=== PATIENT | male | born 1970 | race Caucasian/White ===

== ENCOUNTER 2019-06-04 14:44 | Emergency (ER) | payer BC, SELFPAY ==
[2019-06-04] VITALS (9 sets, daily range): BP systolic 187–210; BP diastolic 120–152; PULSE 81–96; RESP 16–18; TEMP 36.3; O2SAT 18–99; BMI 32.9
--- NOTE | 2019-06-04 15:06 | EKG12_ITS ---
Test Reason : HYPERTENSION Blood Pressure : / mmHG Vent. Rate : 086 BPM Atrial Rate : 086 BPM P-R Int : 160 ms QRS Dur : 086 ms QT Int : 386 ms P-R-T Axes : 038 053 046 degrees QTc Int : 461 ms Normal sinus rhythm Normal ECG Confirmed by NISHA MENENDEZ, NIKO ([id number]), publication editor SERENITY CHAUDHARY ([id number]) on 06/06/2019 2:07:28 PM Referred By: LILIANA
--- NOTE | 2019-06-04 15:08 | CT_ITS ---
STUDY: CTA HEAD AND NECK WITH CONTRAST REASON FOR EXAM: Male, 48 years old. Hypertension. Right-sided facial numbness. RADIATION DOSAGE (If Supplied By Facility): CTDIvol = ( 33.86 ) mGy, DLP = ( 1515.24 ) mGycm TECHNIQUE: CT brain without contrast was performed. CT angiography was performed with a multi-detector CT scanner. Data acquisition was obtained from the skull base through the vertex following intravenous administration of IV Isovue 370 100. with MIP and 3D reconstructed images. Individualized dose optimization techniques were used for this CT. COMPARISON: No relevant priors. FINDINGS: CT brain without contrast reveals no evidence of infarct, hemorrhage or mass. ASPECTS 10 out of 10. Prominent perivascular spaces incidentally noted right putamen. ICA narrowing is measured per NASCET criteria. CTA NECK: Aortic arch: Left-sided 3 vessel aortic arch with no significant narrowing of the great vessel origins or subclavian arteries. Right carotids: Right CCA: No significant narrowing or dissection. Right ICA: No significant narrowing or dissection. Right ECA: No significant narrowing or dissection. Left carotids Left CCA:No significant narrowing or dissection. Left ICA: No significant narrowing or dissection. Mixed plaque causes mild, less than 10%, luminal narrowing of the proximal left ICA. Left ECA: No significant narrowing or dissection. Vertebrals: Codominant vertebral arteries with no significant narrowing and no dissection. CTA HEAD: Intracranial carotids:Normal course and caliber. MCAs:Normal branching pattern. No significant stenosis. ACAs:Normal branching pattern. No significant stenosis. Basilar:Normal caliber. No aneurysm. 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 Fed by dominant P1 segments bilaterally. Patent bilateral posterior and anterior inferior and superior cerebellar arteries are identified. No evidence of AVM or aneurysm. No intracranial DVT. Nonvascular structures: Mild thickening and sclerosis of the wall of the right sphenoid sinus with a small amount of mucosal thickening. This sclerosis surrounds the right vidian canal and abuts the medial aspect of the right foramen rotundum. 1.1 cm low-density nodule in the isthmus of the thyroid gland. Sialoliths in the left submandibular gland. CT/CTA Head AND Neck W/ Contrast IMPRESSION: No significant arterial narrowing in the head or neck. No acute findings. Evidence of chronic right sphenoid sinusitis. This could potentially cause right facial numbness by irritating the right V2 branch of the 5th cranial nerve. 1.1 cm low-density nodule in the isthmus of the thyroid gland. Consider nonemergent thyroid workup including ultrasound unless previously performed. Left submandibular gland sialoliths. Electronically Signed: Sky Mueller, at 17:42 EST Tel , Service support ,
--- NOTE | 2019-06-04 15:12 | RAD_ITS ---
STUDY: X-RAY CHEST REASON FOR EXAM: Male, 48 years old. Chest pain. Hypertension. TECHNIQUE: Single AP portable view of the chest. COMPARISON: Comparison is made with prior study dated November 12, 2014. FINDINGS: EKG electrodes are seen. The lungs are clear and expanded. There is no demonstrated pleural abnormality. Normal size heart. Normal mediastinum and stephanie. Normal visualized pulmonary arteries. There is atherosclerotic tortuosity of the aortic arch and descending thoracic aorta. There are degenerative changes of the visualized thoracic spine. Normal visualized ribs, clavicles, and shoulders. There is no demonstrated abnormality of the visualized soft tissue structures of the upper abdomen. RAD/Chest 1 View (Portable) IMPRESSION: No acute abnormality is seen. Electronically Signed: Taye Hunter, at 15:25 EST , Service support ,
[2019-06-04 15:24] LABS: Absolute Lymphocyte Count 2.85 X10^3/uL (0.83-4.51); Absolute Neutrophil Count 6.2 X10^3/uL (2.0-7.7); Basophil# 0.12 X10^3/uL; Basophil% 1.2 % (0-1); Eosinophil# 0.15 X10^3/uL; Eosinophils% 1.5 % (0-5); Hematocrit 46.1 % (40-54); Hemoglobin 15.7 g/dL (13.0-16.5); Lymphocyte # 2.85 X10^3/ul (4.0); Lymphocyte % 28.4 % (19-41); Mean Corp Hgb Conc 34.1 g/dL (32-36); Mean Corpuscular Hgb 31.3 pg (27.0-32.0); Mean Platelet Vol. 9.7 fl (6.2-12.0); Monocyte# 0.64 X10^3/uL; Monocyte% 6.4 % (0-10); NRBC Flagged by Analyzer 0 % (0-5); Neutrophil # 6.24 X10^3/uL (2.7-7.7); Platelet Count 250 K/mm3 (150-450); RBC Distribution Width CV 13.4 % (11.6-14.6); RBC Distribution Width SD 45.5 fl (35.1-43.9); Red Blood Count 5.01 M/mm3 (4.6-6.2); White Blood Count 10.1 K/mm3 (4.4-11.0)
[2019-06-04] MEDS: Labetalol 20 MG/4 ML Vial IV (15:38)
[2019-06-04 15:42] LABS: Anion Gap 7 (5-15); BUN 13 mg/dL (7-18); BUN/Creat Ratio 13.8 RATIO (10-20); Chloride 104 mmol/L (98-107); Creatinine, Serum 0.94 mg/dL (0.70-1.30); EST Glomerular Filtration Rate 91 mL/min (>60); Est Glom Filt Rate - Afr Amer 111 mL/min (>60); Estimated Creatinine Clearance 107.78 ml/min; Glucose 76 mg/dL (74-106); Potassium 3.8 mmol/L (3.5-5.1); Sodium Level 136 mmol/L (136-145)
[2019-06-04] MEDS: 0.9% Normal Saline 1,000 ML 150 ML IV (15:52)
--- NOTE | 2019-06-04 16:27 | ED.VISSUMM ---
- ER Visit Summary Date of Service: 06/04/19 Chief Complaint: High blood pressure History of Present Illness: The patient is a [address] Silva. He reports that he has had high blood pressure for quite some time. He was on lisinopril 10 mg a day, but does increase this to 20 mg a day since last week when he found that his blood pressure was elevated. Despite this his blood pressure remains elevated. Patient reports that he has a headache is frontal in location for the past 4 days. Is a throbbing pain that is 10 out of 10 at worst and 4-10 currently. He does have a history of similar headaches. He also reports he has right-sided neck pain that began this morning. Is a constant sharp pain that is 5-10 severity. Nothing makes this better or worse. He denies any injury. No fall, MVA, or change in activity. Does report that he has numbness on the right side of his face in a V2 distribution that began 3 hours ago. He denies any other numbness, weakness, change in his vision, dizziness, or other complaints. Physical Examination: Vitals: Stable. Afebrile. General: Well-nourished and well-developed. Head: Normocephalic atraumatic. Neck: Supple, no lymphadenopathy. No JVD. Nontender. Cardiovascular: Regular rate and rhythm. No murmurs. Respiratory: No respiratory distress. Clear to auscultation bilaterally. Abdominal: Soft, nontender, nondistended, normal bowel sounds. No guarding, rebound, or peritoneal signs. Back: Nontender. Extremities: Nontender, no edema. Skin: Normal color, no rash. Neurologic: Alert and oriented ?3. Cranial nerves II through XII are intact except for a decreased sensation to light touch in a V1/V2 distribution on right. Normal strength and sensation. Psych: Normal affect. Test Results: EKG is sinus at [address] changes and artifact. Troponin is negative. Chem-7 is normal. CBC is normal. Clinical Impression(s) from Imaging Studies Head/Neck CTA 06/04/19 15:08 IMPRESSION: No significant arterial narrowing in the head or neck. No acute findings. Evidence of chronic right sphenoid sinusitis. This could potentially cause right facial numbness by irritating the right V2 branch of the 5th cranial nerve. 1.1 cm low-density nodule in the isthmus of the thyroid gland. Consider nonemergent thyroid workup including ultrasound unless previously performed. Left submandibular gland sialoliths. Electronically Signed: Sky Mueller, at 17:42 EST Tel , Service support , Chest X-Ray 06/04/19 15:12 IMPRESSION: No acute abnormality is seen. Electronically Signed: Taye Hunter, at 15:25 EST , Service support , Emergency Department Course and Treatment: Patient's initial blood pressure was 210/133. After 20 mg of labetalol it was 196/132. After 10 mg of hydralazine was 162/117. He was given a dose of labetalol again at 40 mg and his repeat blood pressure is still in the 170/110 range. I discussed the patient that he needs to stay in the hospital to get his blood pressure under control and he is refused this. He reports that his blood pressures been elevated like this for years. Prior to being changed to lisinopril approximately 1 year ago he was on 3 medications that worked perfectly. Treatment Plan: Patient reports that he has an appointment to see his primary care physician tomorrow and will get be placed back on these 3 medications the names of which she does not remember. He is refusing to stay in the hospital. He is capable of making this decision and understands the risks of it. He will be signed out AGAINST MEDICAL ADVICE. Return to the emergency department for any worsening symptoms. Disposition: To home in improved and stable condition. Impression: 1. Hypertensive urgency. 2. Cephalgia. 3. Facial paresthesias. 4. Left AGAINST MEDICAL ADVICE. This note was generated with [employer]ation software. It may contain incorrect words, spelling, and punctuation that were not noted in review of the chart prior to signing ED Disposition - Plan for ED Patient: Disposition: Against Medical Advice Instructions: HYPERTENSION, Established, Out of Control Referrals: Clifford Silva MD [Primary Care Provider] - 1 Day for another exam
[2019-06-04] MEDS: hydrALAZINE 20 MG/ML Vial 10 MG IV (16:33)
[2019-06-04] MEDS: Labetalol 20 MG/4 ML Vial 40 MG IV (17:44)
--- NOTE | 2019-06-04 19:12 | ED.RN ---
PT SIGNED OUT MD EASTON EXPLAINED BENEFIT OF STAYING FOR TREATMENT, PT SIGNED AMA PAPERWORK HE EXPRESSED I DON'T WANT TO TAKE A COPY OF THAT I JUST NEED PAPERWORK SAYING I WAS HERE FOR MY DOCTOR TOMORROW. PT VERBALIZED UNDERSTANDING OF WRITTEN AND VERBAL DISCHARGE INSTRUCTIONS.
--- NOTE | 2019-06-04 19:14 | ED.RN ---
MD AWARE OF PT HYPERTENSION AT DISCHARGE, PT DECLINED FURTHER TREATMENT.
== END 2019-06-04 19:15 | disposition left against medical advice (07) ==
PROVIDERS: Emergency Provider Emergency Medicine; Family Provider Family Medicine; PCP Family Medicine
DX: I16.0 Hypertensive urgency (principal); R51 Headache; R20.2 Paresthesia of skin; Z53.21 Procedure and treatment not carried out due to patient leaving prior to being seen by health care provider; E04.1 Nontoxic single thyroid nodule; K11.5 Sialolithiasis; Z79.899 Other long term (current) drug therapy; F17.200 Nicotine dependence, unspecified, uncomplicated
CPT/HCPCS: 70496; 70498; 71045; 80048; 84484; 85025; 93005; 96361; 96374; 96375; 96376; 99284; J7030; Q9967; A4216

== ENCOUNTER 2023-02-16 07:22 | Inpatient (IN) | payer MEDICAID, SELFPAY ==
[2023-02-16] VITALS (14 sets, daily range): BP systolic 117–184; BP diastolic 74–117; PULSE 86–99; RESP 14–18; TEMP 36.2–36.9; O2SAT 92–99; BMI 35.2; BMI 35.9
--- NOTE | 2023-02-16 07:30 | EKG12_ITS ---
Test Reason : Blood Pressure : / mmHG Vent. Rate : 091 BPM Atrial Rate : 091 BPM P-R Int : 158 ms QRS Dur : 082 ms QT Int : 370 ms P-R-T Axes : 064 063 054 degrees QTc Int : 455 ms Normal sinus rhythm Normal ECG Confirmed by JEAN MENENDEZ, CHRISTINE ([id number]), makeup editor LADAN CENTENO ([id number]) on 02/18/2023 1:30:47 PM Referred By: ZOIE Confirmed By:LESLEY PENA MD
--- NOTE | 2023-02-16 08:05 | RAD_ITS ---
STUDY: X-RAY CHEST REASON FOR EXAM: Male, 52 years old. Chest pain TECHNIQUE: PA and lateral views of the chest. COMPARISON: Comparison is made with prior study June 04, 2019. FINDINGS: EKG electrodes are seen. Hyperinflation. Linear density in the lingular segment of the left upper lobe suggestive of linear atelectasis and/or scarring. There is no demonstrated pleural abnormality. Normal size heart. Normal mediastinum and stephanie. Normal visualized pulmonary arteries. There is atherosclerotic tortuosity of the aortic arch and descending thoracic aorta. There are degenerative changes of the visualized thoracic spine. Normal visualized ribs, clavicles, and shoulders. There is no demonstrated abnormality of the visualized soft tissue structures of the upper abdomen. RAD/Chest PA and Lateral IMPRESSION: Linear density in the lingular segment of the left upper lobe suggests overlying atelectasis and/or scarring. Electronically Signed: Taye Hunter MD at 8:47 EDT ,
[2023-02-16 08:07] LABS: Absolute Lymphocyte Count 2.36 X10^3/uL (0.83-4.51); Basophil% 1.2 % (0-1); Eosinophil# 0.13 X10^3/uL; Eosinophils% 1.6 % (0-5); Hematocrit 42.1 % (40-54); Hemoglobin 14.4 g/dL (13.0-16.5); Lymphocyte # 2.36 X10^3/ul (0.83-4.51); Lymphocyte % 28.7 % (19-41); Mean Corp Hgb Conc 34.2 g/dL (32-36); Mean Corpuscular Hgb 31.7 pg (27.0-32.0); Mean Corpuscular Volume 92.7 fL (80-94); Mean Platelet Vol. 10.3 fl (6.2-12.0); Monocyte# 0.61 X10^3/uL; Monocyte% 7.4 % (0-10); NRBC Flagged by Analyzer 0 % (0-5); Neutrophil % 60.9 % (47-70); Platelet Count 276 K/mm3 (150-450); RBC Distribution Width CV 13.8 % (11.6-14.6); RBC Distribution Width SD 47.2 fl (35.1-43.9); Red Blood Count 4.54 M/mm3 (4.6-6.2); White Blood Count 8.2 K/mm3 (4.4-11.0)
[2023-02-16 08:26] LABS: Lipase 22 U/L (13-75)
[2023-02-16 08:29] LABS: Anion Gap 5 (5-15); BUN 13 mg/dL (7-18); BUN/Creat Ratio 11.9 RATIO (10-20); Calcium,Total 8.9 mg/dL (8.5-10.1); Chloride 105 mmol/L (98-107); Creatinine, Serum 1.09 mg/dL (0.70-1.30); EST Glomerular Filtration Rate 76 mL/min (>60); Est Glom Filt Rate - Afr Amer 92 mL/min (>60); Estimated Creatinine Clearance 88.99 ml/min; Glucose 110 mg/dL (74-106); Potassium 3.8 mmol/L (3.5-5.1); Sodium Level 137 mmol/L (136-145); Troponin-I HS (w/2H Reflex) 428 pg/mL (3.0-78.0)
--- NOTE | 2023-02-16 08:31 | ED.RN ---
Troponin 428 result recieved from lab. EMD aware.
[2023-02-16 08:36] LABS: AST(SGOT) 19 U/L (15-37); Alanine Aminotransfer ALT/SGPT 33 U/L (16-61); Albumin, Serum 3.6 g/dL (3.2-5.0); Alkaline Phosphatase 77 U/L (45-117); Bilirubin, Direct 0.08 mg/dL (0.00-0.30); Globulin 4.4 g/dL (2.2-4.2)
[2023-02-16 09:12] LABS: Prothrombin Time (Protime)PT. 12.8 SECONDS (11.7-14.9)
[2023-02-16 09:13] LABS: Partial Thromboplast Time 30.8 Seconds (24.1-36.2)
--- NOTE | 2023-02-16 09:18 | ED.VIS.CHEST ---
HPI History of Present Illness Chief Complaint: Chest Pain Informant: patient Narrative Narrative: Patient is a 52-year-old male with history of tobacco use, regular alcohol use and hypertension presenting with chest pain. Patient states that he developed chest pain yesterday that was right over his heart. He states it felt like he was being punched in the chest. He put a pillow to his chest and eventually fell asleep. When the chest pain was still present however not as intense this morning He denies any radiation of the pain. Does feel little short of breath when he woke up this morning and maybe his breathing is a little heavier. He initially went to work but with the symptoms decided to come to the emergency room. Patient does note for the past few months he has been having some chest pain with exertion. He states he gets discomfort in the center of his chest after about 20 minutes of using his push mower. He states he will go inside and rest and then go back to mowing his lawn. He also tells me that he gets this discomfort with exertion associate with intercourse. Did not take any medicine including aspirin prior to arrival. Patient does note he has a history of gout which was thought to be secondary to a long-term blood pressure medicine. He states that was a diuretic and he was taken off of that. He denies any significant swelling of his legs however. His gout has since resolved. He does not recall the name of this medication. [facility] Home Medications amlodipine 10 mg tablet 10 mg PO DAILY blood pressure 02/16/23 [History Last Taken 02/16/23] lisinopril 30 mg tablet 30 mg PO DAILY blood pressure 02/16/23 [History Last Taken 02/16/23] omeprazole 20 mg capsule,delayed release 20 mg PO DAILY acid reflux 02/16/23 [History Last Taken 02/16/23] Allergy/AdvReac Type Severity Reaction Status Date / Time No Known Allergies Allergy Verified 02/16/23 07:24 Social History Smoking Status: Current every day smoker tobacco type: cigarettes ROS ROS ED Constitutional Constitutional ED: Denies chills or fever(s) Eyes Eyes: Denies blurry vision Cardiovascular Cardiovascular: Reports as per HPI and chest pain; Denies palpitations or racing heartbeat Respiratory/Chest Respiratory/Chest: Reports dyspnea; Denies cough Gastrointestinal Gastrointestinal: Denies abdominal pain, nausea or vomiting Musculoskeletal Musculoskeletal: Denies arthralgias, back pain, myalgias or neck pain Neurologic Neurologic: Denies headache(s) or weakness Psychiatric Psychiatric: Denies anxiety or depression EXAM Physical Exam Const Vital Signs: 02/16/23 07:23 02/16/23 07:45 Temperature 97.2 F L Temperature Source Temporal Pulse Rate 96 Respiratory Rate 14 Blood Pressure 156/108 H Blood Pressure Mean 124 Pulse Ox 99 Oxygen Delivery Method Room Air Room Air Positive well nourished and well developed General Appearance ED: well developed and NAD HEENT Reports moist mucous membranes normocephalic and atraumatic Eyes PERRL and EOMs intact bilaterally Neck supple and no JVD Chest Wall inspection of chest normal and palpation of chest normal Chest: Negative for tenderness Resp normal respiratory effort and clear to auscultation bilaterally Cardio regular rate, regular rhythm and no murmurs Peripheral Pulses: pulses 2+ throughout GI normal to inspection, nondistended, normoactive bowel sounds and soft to palpation Neuro oriented x3 Sensorium / Orientation: awake and alert Motor Exam: Negative for general weakness Psych mental status grossly normal Skin no rashes or lesions noted and no wounds Heart Score History: Highly Suspicious ECG: Normal Age: >45 - <65 years Risk Factors: >/= 3 Risk Factors or History of CAD Troponin: >/=3 x Normal Limit Score: 7 MDM MDM MDM Narrative Medical decision making narrative: Patient is evaluated for chest pain that occurred without any exertion starting last night. It is resolving at this time. He also has a concerning story of some exertional chest pain over the past few months concerning for angina. EKG obtained is normal sinus rhythm with no ischemic process. However, he does have a significant elevation of his high-sensitivity troponin, initial 1 is 428. On repeat evaluation patient states he is completely pain-free at this time. He has multiple cardiac risk factors. Case is discussed with cardiology on-call, Dr. Cabral. Patient started on heparin drip. Will be admitted for the PCU. Will be kept n.p.o. for likely cardiac catheterization later today. Patient is informed of this plan of care. He is given full dose aspirin in the emergency room. We will discuss the case with hospitalist for admission. Lab Data Attestation: I reviewed the patient's lab results. Labs: Laboratory Results - last 24 hr 02/16/23 07:47 WBC 8.2 RBC 4.54 L Hgb 14.4 Hct 42.1 MCV 92.7 MCH 31.7 MCHC 34.2 RDW Std Deviation 47.2 H RDW Coeff of Keri 13.8 Plt Count 276 MPV 10.3 Immature Gran % (Auto) 0.200 Neut % (Auto) 60.9 Lymph % (Auto) 28.7 [place] % (Auto) 7.4 Eos % (Auto) 1.6 Baso % (Auto) 1.2 H Absolute Neuts (auto) 5.0 Absolute Lymphs (auto) 2.36 Nucleated RBC % 0 PT 12.8 INR 1.0 APTT 30.8 Sodium 137 Potassium 3.8 Chloride 105 Carbon Dioxide 27.0 Anion Gap 5 BUN 13 Creatinine 1.09 Estim Creat Clear Calc 88.99 Est GFR (MDRD) Af Amer 92 Est GFR (MDRD) Non-Af 76 BUN/Creatinine Ratio 11.9 Glucose 110 H Calcium 8.9 Total Bilirubin 0.20 Direct Bilirubin 0.08 AST 19 ALT 33 Alkaline Phosphatase 77 Troponin I High Sens 428 H* Total Protein 8.0 Albumin 3.6 Globulin 4.4 H Lipase 22 Radiography Chest X-Ray - ED: 2 View, Read by ED Physician, Read by Radiologist and No Acute Disease Diagnostic Testing: Clinical Impression(s) from Imaging Studies Chest X-Ray 02/16/23 08:05 IMPRESSION: Linear density in the lingular segment of the left upper lobe suggests overlying atelectasis and/or scarring. Electronically Signed: Taye Hunter MD at 8:47 EDT , Rhythm Strip Rhythm Strip: Sinus Rhythm Rate: 91 Ectopy: None EKG Initial EKG: Attestation: I personally reviewed and interpreted this EKG as follows: Interpretation: Sinus Rhythm Comments: Normal sinus rhythm at a rate of 91 bpm Normal axis Normal intervals Normal ST segments Management Discussion w/another healthcare provider: Hospitalist and Solar Panel Installation Supervisor Discharge Plan Dx/Rx/DC Orders Clinical Impression: Non-ST elevation [place] (NSTEMI), Continuous tobacco abuse, Chest pain, Hypertension Disposition Disposition: Acute Care Hospital [facility] Discharge Date/Time: 02/16/23 10:38
[2023-02-16] MEDS: HEPARIN/D5w 25,000 UNITS 25,000 UNITS/250 ML IV.SOLN. 10 UNITS CONT INF (09:25)
[2023-02-16] MEDS: Heparin Injection (Vial) 5,000 UNIT/ML VIAL 4000 UNIT IV (09:26)
[2023-02-16 10:05] LABS: Reflex Troponin-HS? (from REC) Y
[2023-02-16 10:43] LABS: Troponin-I HS 596 pg/mL (3.0-78.0)
--- NOTE | 2023-02-16 11:04 | NURSING ---
Report called to nurse Farhad RN, pt being transported to medical laboratory technician for procedure.
--- NOTE | 2023-02-16 11:11 | PCM.CONS.C ---
Assessment & Plan Assessment/Plan (1) Non-ST elevation [place] (NSTEMI): PLAN: It appears the patient was given aspirin and also has been started on heparin drip. We will proceed with coronary angiography. Risks and benefits explained to the patient in detail. Patient wishes to proceed. Rest of the management will be based on coronary angiography findings. Check 2D echo as well. HPI Consult Data Date of Consult: 02/16/23 HPI Narrative HPI Narrative: MARILOU PIERRE, is a 52 M who presents with chest pain. He was found to have elevated troponin. Patient has been having exertional chest pain which has progressed. [facility] Home Medications amlodipine 10 mg tablet 10 mg PO DAILY blood pressure 02/16/23 [History Last Taken 02/16/23] lisinopril 30 mg tablet 30 mg PO DAILY blood pressure 02/16/23 [History Last Taken 02/16/23] omeprazole 20 mg capsule,delayed release 20 mg PO DAILY acid reflux 02/16/23 [History Last Taken 02/16/23] Allergy/AdvReac Type Severity Reaction Status Date / Time No Known Allergies Allergy Verified 02/16/23 07:24 Social History Smoking Status: Current every day smoker tobacco type: cigarettes Physical Exam Const alert and oriented x3 HEENT normocephalic Eyes no scleral icterus Resp normal respiratory effort Psych mental status grossly normal Risk Stratification Risk Stratification Applicable: No Charges/Coding Visit Charges Inpatient E&M: 89158 Init Hosp L2 Objective Data Vital Signs: Vital Signs Temp Pulse Resp BP Pulse Ox O2 Del Method 98.1 F 99 18 184/117 H 98 Room Air 02/16/23 10:50 02/16/23 10:50 02/16/23 10:50 02/16/23 10:50 02/16/23 10:50 02/16/23 10:50 Oxygen Delivery Method Room Air Weight: 265 lb Body Mass Index (BMI) 35.9 Lab / Micro Data 02/16/23 07:47 02/16/23 07:47 Labs: Laboratory Results - last 24 hr 02/16/23 07:47: WBC 8.2, RBC 4.54 L, Hgb 14.4, Hct 42.1, MCV 92.7, MCH 31.7, MCHC 34.2, RDW Std Deviation 47.2 H, RDW Coeff of Keri 13.8, Plt Count 276, MPV 10.3, Immature Gran % (Auto) 0.200, Neut % (Auto) 60.9, Lymph % (Auto) 28.7, Real % (Auto) 7.4, Eos % (Auto) 1.6, Baso % (Auto) 1.2 H, Absolute Neuts (auto) 5.0, Absolute Lymphs (auto) 2.36, Nucleated RBC % 0, PT 12.8, INR 1.0, APTT 30.8, Sodium 137, Potassium 3.8, Chloride 105, Carbon Dioxide 27.0, Anion Gap 5, BUN 13, Creatinine 1.09, Estim Creat Clear Calc 88.99, Est GFR (MDRD) Af Amer 92, Est GFR (MDRD) Non-Af 76, BUN/Creatinine Ratio 11.9, Glucose 110 H, Calcium 8.9, Total Bilirubin 0.20, Direct Bilirubin 0.08, AST 19, ALT 33, Alkaline Phosphatase 77, Troponin I High Sens 428 H*, Total Protein 8.0, Albumin 3.6, Globulin 4.4 H, Lipase 22 02/16/23 10:15: Troponin I High Sens 596 H* Rhythm Strip Rhythm Strip: Sinus Rhythm Rate: 91 Ectopy: None Cardiology Labs/Tests 02/16/23 07:47: WBC 8.2, RBC 4.54 L, Hgb 14.4, Hct 42.1, MCV 92.7, MCH 31.7, MCHC 34.2, Plt Count 276, MPV 10.3, Immature Gran % (Auto) 0.200, Neut % (Auto) 60.9, Lymph % (Auto) 28.7, Real % (Auto) 7.4, Eos % (Auto) 1.6, Baso % (Auto) 1.2 H, Absolute Neuts (auto) 5.0, Nucleated RBC % 0, PT 12.8, INR 1.0, APTT 30.8, Sodium 137, Potassium 3.8, Chloride 105, Carbon Dioxide 27.0, Anion Gap 5, BUN 13, Creatinine 1.09, Est GFR (MDRD) Af Amer 92, Est GFR (MDRD) Non-Af 76, BUN/Creatinine Ratio 11.9, Glucose 110 H, Calcium 8.9, Total Bilirubin 0.20, Direct Bilirubin 0.08 Rhythm: EKG: ECHO: Stress Test: Cardiac Cath: PCI: CT Surgery: Holter monitor: EPS: PPM: CXR: Chest CT Scan: Radiography Diagnostic Testing: Radiology Impression Chest X-Ray 02/16/23 08:05 IMPRESSION: Linear density in the lingular segment of the left upper lobe suggests overlying atelectasis and/or scarring. Electronically Signed: Taye Hunter MD at 8:47 EDT ,
--- NOTE | 2023-02-16 12:05 | CASEMGMT ---
Tertiary facilities in-network [facility] patient's [employer] EMERY: Manuel Iglesias, Ben, WINSOME, BALA, Jonh, and Eleonora
--- NOTE | 2023-02-16 12:33 | CL.D_ITS ---
Patient Name: MARILOU PIERRE Study Date: 02/16/2023 Performing: Melania Cabral MD Ht: 72 inches 182.88 cm : 1970 Wt: 265.3 lbs 120.2 kg Age: 52 Gender: male BSA: 2.4 PROCEDURE(S) PERFORMED [id number])LHC/COR/LV CLINICAL PROFILE AND INDICATIONS Indications: ACS <= 24 hrs Heart Failure: None Stress/Imaging Stress/Image Study Performed: No CAD Presentations: Non-STEMI. Symptom onset Date/Time: Time Not Available CONCLUSIONS CAD as described. No significant aortic stenosis or mitral regurgitation. LVEF is 55% with mild inferior hypokinesis. Mild aortic root dilatation cannot be excluded. RECOMMENDATIONS Surgical consult for heart team approach to discuss CABG versus PCI for patient's coronary artery disease DESCRIPTION OF PROCEDURE The patient arrived to the procedure lab. The risks and benefits of the procedure as well as a full description of our services here and current unavailability of surgical backup were fully explained to the patient and/or their significant other prior to the catheterization. The Timeout was completed, verifying the correct patient and procedure. The patient's procedural site was prepped and draped in the usual fashion. Local anesthetic was given subcutaneously to right radial region with Lidocaine 2%. Using a modified Seldinger technique, arterial access was obtained via the right radial artery, a 6Fr sheath was inserted. Left Coronary Artery selective angiography was performed in multiple views using a 5 Fr. JL3.5 catheter. Left Ventriculography was performed in STORM projection using a 5 Fr. Pigtail catheter. LV to AO pullback pressures were then recorded. Right Coronary Artery selective angiography was then performed in multiple views using a 5 Fr. JR 4 catheter.The arterial sheath was pulled and a TR Band was applied for hemostasis CORONARY ANGIOGRAPHY DOMINANCE: Right Dominant LEFT HEART ASSESSMENT Left Ventricular Ejection Fraction: by LV Gram 55 %. Inferior hypokinesis LEFT MAIN: 50 % Stenosis, ulcerated lesion LEFT ANTERIOR DESCENDING ARTERY: PROX LAD: 30-40 % Stenosis CIRCUMFLEX ARTERY: MID CIRC: 80-90 % Stenosis RIGHT CORONARY ARTERY: MID RCA: 90-95 % Stenosis VALVE FINDINGS: No Aortic Valve Stenosis No Mitral Insufficiency AORTIC ROOT: Appears to be mildly dilated COMPLICATIONS No Complications PROCEDURE MEDICATIONS Versed 2 mg IV Fentanyl 50 mcg IV Oxygen: 2 L/min via nasal cannula SUMMARY OF HEMODYNAMIC DATA Time AIR REST ECG 11:17:06 AO 129/92 (113) SA 11:38:16 LV 149/12, 20 11:46:15 LV 144/2, 14 11:46:28 LV 160/-7, 11 11:47:06 LVp 157/1, 14 11:47:32 AOp 152/100 (124) 11:47:37 Signed By Melania Cabral MD On 02/16/2023 12:32:34 Melania Cabral MD
[2023-02-16] MEDS: Carvedilol 6.25 MG Tablet PO (13:13)
[2023-02-16] MEDS: Atorvastatin Calcium 40 MG Tablet PO (13:13)
[2023-02-16 14:22] LABS: Troponin-I HS 540 pg/mL (3.0-78.0)
--- NOTE | 2023-02-16 14:31 | HP.PCM.HOS_ITS ---
[facility] - General General Date of Admission: 02/16/23 Date of Service: 02/16/23 Chief Complaint: Chest pain HPI Narrative MARILOU PIERRE, is a 52 M who presents to the emergency room at [facility] with complaints of intermittent chest pain over the last few months, he also stated that last night he had precordial chest pain which he described as achy in nature, this lasted several hours last night and the patient went to sleep, he awoke this morning, according to the patient, he did not have any chest pain today but he did not feel well so he came to the emergency room for evaluation. Evaluation in the emergency room included an EKG which showed normal sinus rhythm without evidence of ischemic changes, patient's troponin was elevated at 428, the remainder the patient's labs were unremarkable. Patient's chest x-ray did not show any acute process. Cardiology was contacted and advised placing patient on heparin drip and admitting the patient for a heart catheterization today. Patient was taken to the [facility] today, there is noted to be a 90 to 95% lesion of the right coronary artery, a 50% ulcerated lesion in the left main coronary artery, and a 90% blockage in the circumflex artery. Patient's LV function was normal, there is also noted to be possible aortic root dilation on the LV gram. Cardiology requested the patient be transferred out to a tertiary care center for high risk stenting and angioplasty or consideration for coronary artery bypass grafting. I discussed this with the patient and he was okay with going to [facility], at the time of this dictation, we are awaiting a bed for the patient-they have excepted the patient. Patient is currently on [facility] Home Medications amlodipine 10 mg tablet 10 mg PO DAILY blood pressure 02/16/23 [History Last Taken 02/16/23] lisinopril 30 mg tablet 30 mg PO DAILY blood pressure 02/16/23 [History Last Taken 02/16/23] omeprazole 20 mg capsule,delayed release 20 mg PO DAILY acid reflux 02/16/23 [History Last Taken 02/16/23] Allergy/AdvReac Type Severity Reaction Status Date / Time No Known Allergies Allergy Verified 02/16/23 07:24 Social History Smoking Status: Current every day smoker tobacco type: cigarettes ROS Constitutional Constitutional: Denies anorexia, change in weight, chills, fatigue, fever(s), malaise, night sweats or weakness Eyes Eyes: Denies blurry vision, change in vision, discharge from eye(s) or eye pain Cardiovascular Cardiovascular: Reports chest pain; Denies claudication, dyspnea on exertion, edema or palpitations Respiratory/Chest Respiratory/Chest: Denies cough, dyspnea, excessive phlegm production, hemoptysis, productive cough, shortness of breath at rest or shortness of breath with exertion Gastrointestinal Gastrointestinal: Denies abdominal pain, constipation, diarrhea, hematemesis, hematochezia, melena, nausea or vomiting Genitourinary Genitourinary: Denies dysuria, hematuria, urinary frequency, urinary hesitancy, urinary incontinence or urinary urgency Musculoskeletal Musculoskeletal: Denies back pain, joint pain, joint stiffness, joint swelling, myalgias or neck pain Neurologic Neurologic: Denies abnormal gait, abnormal speech, confusion, disequilibrium, dizziness, focal weakness, headache(s), loss of vision, numbness, other visual d isturbances, paresthesias, syncope or tingling Psychiatric Psychiatric: Denies anxiety, cognitive impairment, depression, irritability, mood swings or suicidal ideation Endocrine Endocrinology: Denies change in body appearance, cold intolerance, excessive sweating, heat intolerance, polydipsia or polyuria Hematologic/Lymphatic Hematologic/Lymphatic: Denies none, anemia, easy bleeding, easy bruising or lymphadenopathy Allergic/Immunologic Allergic/Immunologic: Denies rhinitis, urticaria, eczemia or asthma Vital Signs Vital Signs Vital Signs: 02/16/23 07:23 02/16/23 07:45 02/16/23 10:36 Temperature 97.2 F L Temperature Source Temporal Pulse Rate 96 87 Respiratory Rate 14 16 Respiratory Effort Respiratory Depth Respiratory Pattern Blood Pressure 156/108 H 178/92 H Blood Pressure Mean 124 120 Blood Pressure Source Blood Pressure Position Blood Pressure Location Pulse Ox 99 99 Oxygen Delivery Method Room Air Room Air Room Air 02/16/23 10:36 02/16/23 10:50 02/16/23 12:20 Temperature 97.6 F L 98.1 F 97.8 F Temperature Source Oral Temporal Temporal Pulse Rate 87 99 95 Respiratory Rate 16 18 18 Respiratory Effort Respiratory Depth Respiratory Pattern Blood Pressure 176/92 H 184/117 H 160/103 H Blood Pressure Mean 120 139 122 Blood Pressure Source Monitor Monitor Blood Pressure Position Semi-Fowlers Semi-Fowlers Blood Pressure Location Right Arm Left Arm Pulse Ox 98 94 Oxygen Delivery Method Room Air Room Air Room Air 02/16/23 12:37 02/16/23 12:35 02/16/23 12:50 Temperature Temperature Source Pulse Rate 93 97 Respiratory Rate Respiratory Effort Normal Non-Labored Respiratory Depth Normal Respiratory Pattern Normal Blood Pressure 124/112 H 141/92 H Blood Pressure Mean 116 108 Blood Pressure Source Monitor Monitor Blood Pressure Position Semi-Fowlers Semi-Fowlers Blood Pressure Location Left Arm Left Arm Pulse Ox 94 95 Oxygen Delivery Method Room Air Room Air Room Air 02/16/23 13:05 02/16/23 13:35 Temperature Temperature Source Pulse Rate 86 90 Respiratory Rate 18 18 Respiratory Effort Respiratory Depth Respiratory Pattern Blood Pressure 158/104 H 149/91 H Blood Pressure Mean 122 110 Blood Pressure Source Monitor Monitor Blood Pressure Position Semi-Fowlers Semi-Fowlers Blood Pressure Location Left Arm Left Arm Pulse Ox 94 94 Oxygen Delivery Method Room Air Room Air Weight Weight: 120.202 kg Body Mass Index (BMI) 35.9 Physical Exam Const alert, oriented x3, no apparent distress and healthy appearing General Appearance: cooperative, well kempt and well developed Orientation / Consciousness: awake, oriented to person, oriented to place and oriented to time HEENT normocephalic, head/scalp atraumatic, hearing grossly normal bilaterally and moist oral mucous membranes Eyes PERRL, EOMs intact bilaterally and conjunctivae normal Neck supple, no JVD, thyroid normal and no carotid bruits General: trachea midline Resp normal respiratory effort, no retractions, no use of accessory muscles and clear to auscultation bilaterally Auscultation: Negative for rales, rhonchi or wheezes Cardio regular rate, regular rhythm, S1 normal heart sound, S2 normal heart sound, no murmurs, no rub and no gallops GI normal to inspection, nondistended, normoactive bowel sounds, soft to palpation, non-tender and non-distended Extremity no clubbing, cyanosis or edema Skin no rashes or lesions noted General Skin Exam: no breakdown Neuro oriented x3, CN's II-XII intact bilaterally, moves all extremities, no focal motor deficits and no sensory deficits noted Sensorium / Orientation: awake, alert, oriented to person, oriented to place and oriented to time Speech: speech normal Psych affect normal Results Lab / Micro Data 02/16/23 07:47 02/16/23 07:47 Labs: Laboratory Results - last 24 hr 02/16/23 07:47: WBC 8.2, RBC 4.54 L, Hgb 14.4, Hct 42.1, MCV 92.7, MCH 31.7, MCHC 34.2, RDW Std Deviation 47.2 H, RDW Coeff of Keri 13.8, Plt Count 276, MPV 10.3, Immature Gran % (Auto) 0.200, Neut % (Auto) 60.9, Lymph % (Auto) 28.7, [place] % (Auto) 7.4, Eos % (Auto) 1.6, Baso % (Auto) 1.2 H, Absolute Neuts (auto) 5.0, Absolute Lymphs (auto) 2.36, Nucleated RBC % 0, PT 12.8, INR 1.0, APTT 30.8, Sodium 137, Potassium 3.8, Chloride 105, Carbon Dioxide 27.0, Anion Gap 5, BUN 13, Creatinine 1.09, Estim Creat Clear Calc 88.99, Est GFR (MDRD) Af Amer 92, Est GFR (MDRD) Non-Af 76, BUN/Creatinine Ratio 11.9, Glucose 110 H, Calcium 8.9, Total Bilirubin 0.20, Direct Bilirubin 0.08, AST 19, ALT 33, Alkaline Phosphatase 77, Troponin I High Sens 428 H*, Total Protein 8.0, Albumin 3.6, Globulin 4.4 H, Lipase 22 02/16/23 10:15: Troponin I High Sens 596 H* 02/16/23 13:58: Troponin I High Sens 540 H* Rhythm Strip Rhythm Strip: Sinus Rhythm Rate: 91 Ectopy: None Radiology Impression Chest X-Ray 02/16/23 08:05 IMPRESSION: Linear density in the lingular segment of the left upper lobe suggests overlying atelectasis and/or scarring. Electronically Signed: Taye Hunter MD at 8:47 EDT , Assessment & Plan Assessment/Plan (1) Non-ST elevation NM (NSTEMI): PLAN: Plan 1. Non-STEMI secondary to occlusive coronary disease of the right coronary artery, circumflex coronary artery, with nonocclusive disease in the left main coronary artery-patient was admitted to PCU, again we are waiting a bed ass ignment at [facility] and the patient will be transferred there for further care he will perhaps need a high risk intervention or coronary artery bypass. Patient will remain on a heparin drip, aspirin, and a statin. #2 essential hypertension--Patient will remain on his present medication Total clinical time spent by myself addressing the patient's medical issues, reviewing all of his data, and collaborating with patient's care team: 75 minutes Charges/Coding Visit Charges Inpatient E&M: 25234 Init Hosp L3
--- NOTE | 2023-02-16 16:29 | NURSING ---
Report called to nurse Mendoza for pt to be tx to [facility].
[2023-02-16 17:08] LABS: Partial Thromboplast Time 29.6 Seconds (24.1-36.2)
--- NOTE | 2023-02-16 19:50 | NURSING ---
Transport is at bedside to transfer to [facility] vs obtained. report given to transport crew. Pt left at this time [facility].
== END 2023-02-16 19:57 | disposition short-term general hospital (02) | DRG 190 ==
LOC: ED 08:27 → PCU 10:32
PROVIDERS: Admitting Provider Internal Medicine; Emergency Provider Emergency Medicine; PCP Family Medicine; Visit Provider Internal Medicine
DX: I21.4 Non-ST elevation (NSTEMI) myocardial infarction (principal); I10 Essential (primary) hypertension; M10.9 Gout, unspecified; I25.10 Atherosclerotic heart disease of native coronary artery without angina pectoris; R07.9 Chest pain, unspecified; Z87.891 Personal history of nicotine dependence
CPT/HCPCS: 36415; 71046; 80048; 80076; 83690; 84484; 85025; 85610; 85730; 93005; 93458; 99152; 99153; 99285; 99406; J7040; A4216; C1769; C1894; Q9967

== ENCOUNTER 2023-05-25 08:32 | Emergency (ER) | payer MEDICAID, SELFPAY ==
[2023-05-25 08:33] VITALS: BP 199/140; PULSE 74; RESP 18; TEMP 36.3; O2SAT 96; BMI 33.7
--- NOTE | 2023-05-25 08:49 | EDS_ITS ---
HPI History of Present Illness Chief Complaint: Nosebleed Informant: patient Narrative Narrative: Patient is a 52-year-old male with history of hypertension coronary artery disease with CABG in February of this year presenting with epistaxis. Patient states he has had some sinus issues for the past week and a half and started having intermittent nosebleeds yesterday. Became more persistent throughout the night last night. He states his nose has been bleeding pretty continuously for the past 4 hours now. He states that besides the nosebleed he feels fine. Is coming from the left side. Patient is on a blood thinner and took his last dose yesterday evening. He thinks it is Plavix. He notes he also takes aspirin. Complaints or concerns at this time. PFSH PFSH Home Medications amlodipine 10 mg tablet 10 mg PO DAILY blood pressure 02/16/23 [History Last Taken 02/16/23] lisinopril 30 mg tablet 30 mg PO DAILY blood pressure 02/16/23 [History Last Taken 02/16/23] omeprazole 20 mg capsule,delayed release 20 mg PO DAILY acid reflux 02/16/23 [History Last Taken 02/16/23] amoxicillin 875 mg-potassium clavulanate 125 mg tablet 1 tab PO BID #10 tabs 05/25/23 [Rx Last Taken Unknown] hydrocodone-acetaminophen 5-325mg 5mg-325mg 1 tab PO Q6H PRN PRN Pain 3 days #12 TABLETS 05/25/23 [Rx Last Taken Unknown] Allergy/AdvReac Type Severity Reaction Status Date / Time No Known Allergies Allergy Verified 05/25/23 08:33 Social History Smoking Status: Current every day smoker tobacco type: cigarettes ROS ROS ED Constitutional Constitutional ED: Denies chills or fever(s) Eyes Eyes: Denies change in vision ENT ENT ED: Reports other Details: Epistaxis Cardiovascular Cardiovascular: Denies chest pain or palpitations Respiratory/Chest Respiratory/Chest: Denies cough Gastrointestinal Gastrointestinal: Denies nausea or vomiting Musculoskeletal Musculoskeletal: Denies myalgias Integumentary Denies rash Neurologic Neurologic: Denies headache(s) or weakness Hematologic/Lymphatic Hematologic/Lymphatic: Reports easy bleeding and easy bruising EXAM Physical Exam Const Vital Signs: 05/25/23 08:33 11/08/23 10:23 Temperature 97.4 F L Temperature Source Temporal Pulse Rate 74 Respiratory Rate 18 Blood Pressure 199/140 H 210/140 H Blood Pressure Mean 159 163 Pulse Ox 96 Oxygen Delivery Method Room Air Positive well nourished and well developed General Appearance ED: well developed and NAD; Negative for pallor HEENT Reports TM's clear and moist mucous membranes HEENT Narrative: Normal oropharynx. No blood appreciated in the oropharynx. Normal right nares. Tympanic Membrane ED: Yes TM's clear Eyes PERRL and EOMs intact bilaterally Neck supple and no JVD Chest Wall inspection of chest normal Chest Narrative: Sternotomy scar present Resp normal respiratory effort and clear to auscultation bilaterally Cardio regular rate and regular rhythm Extremity normal to inspection General Extremety ED: Negative for edema General Extremity: Negative for edema Neuro oriented x3 Sensorium / Orientation: alert Motor Exam: Negative for general weakness Psych mental status grossly normal Skin no rashes or lesions noted General Skin Exam: Negative for pallor MDM MDM MDM Narrative Medical decision making narrative: Waited for epistaxis from the left side. I am not able to obviously see the so urce of bleeding. I do not think it is a posterior bleed. On nasal packing is placed using a 5.5 cm Rhino Rocket. He has resolution of bleeding. Will be given a prescription for Augmentin to take if the packing is in for more than 48 hours as well as as needed prescription for [place] to help with the pain associated with the packing. Will be given outpatient ENT follow-up. Given return precautions. Patient agreeable to plan of care. Blood pressure is elevated in the ER. He is asymptomatic. He is uncomfortable due to his nasal packing. He states that he recently was decreased to what sounds like 50 mg of hydralazine twice a day from 3 times a day. Counseled that when he gets home he should retake his blood pressure and let might need to take afternoon dose of his hydralazine. He is not interested in further blood pressure management in the ER at this time. He is counseled signs and symptoms of a hypertensive emergency however I do not think he is laying any of these at this time. Has no further bleeding in the emergency room. Discharge Plan Triage Chief Complaint: Nosebleed ED Provider: Aurea Goetz Dx/Rx/DC Orders Clinical Impression: Acute anterior epistaxis, Hypertension Instructions: ED Epistaxis (Adult) Prescriptions: New amoxicillin-pot clavulanate 875-125 mg tablet 1 tab PO BID Qty: 10 0RF hydrocodone-acetaminophen 5-325 mg tablet 1 tab PO Q6H PRN PRN (Reason: Pain) 3 Days Qty: 12 0RF No Action lisinopril 30 mg tablet 30 mg PO DAILY amlodipine 10 mg tablet 10 mg PO DAILY omeprazole 20 mg capsule,delayed release(DR/EC) 20 mg PO DAILY Patient Comments: PT GETS OTC OMEPRAZOLE AND TAKES ONCE DAILY Primary Care Provider: Clifford Silva Referrals: Adrian Ledesma MD [Med Staff - Active Staff] - 2 Days Clifford Silva MD [Primary Care Provider] - Activity Restrictions/Additional Instructions: Please follow-up with research animal facility supervisor in 2 to 5 days. They can reevaluate and remove the packing. Given your recent cardiac surgery would recommend you continue taking her Plavix and aspirin. The packing is in for more than 2 days (not removed by Tuesday) please do not take any antibiotics prescribed, Augmentin. Take it until the packing is removed. Take Either Tylenol or the pain medication prescribed to help with the discomfort associated with the packing. Tylenol and the pain medicine at the same time as a both have Tylenol in it. Disposition Disposition: Home, Self Care Discharge Date/Time: 05/25/23 10:28
[2023-05-25] MEDS: HYDROcodone Bitartrate/Apap 5/325 Tablet PO (09:35)
[2023-05-25 10:23] VITALS: BP 210/140
== END 2023-05-25 10:28 | disposition home or self-care (01) ==
PROVIDERS: Emergency Provider Emergency Medicine; PCP Family Medicine; Visit Provider Emergency Medicine
DX: R04.0 Epistaxis (principal); I10 Essential (primary) hypertension; F17.210 Nicotine dependence, cigarettes, uncomplicated; I25.10 Atherosclerotic heart disease of native coronary artery without angina pectoris; Z95.1 Presence of aortocoronary bypass graft; Z79.02 Long term (current) use of antithrombotics/antiplatelets; Z79.82 Long term (current) use of aspirin; Z79.899 Other long term (current) drug therapy
CPT/HCPCS: 30901

== ENCOUNTER 2023-05-25 13:12 | Emergency (ER) | payer MEDICAID, SELFPAY ==
[2023-05-25 13:13] VITALS: PULSE 79; RESP 18; TEMP 36.3; O2SAT 96; BMI 34.9
--- NOTE | 2023-05-25 14:07 | EX.ED.DYSGE1 ---
HPI History of Present Illness Chief Complaint: Nosebleed Informant: patient Onset/Context/Timing Onset: Today Context: Sudden Onset Timing: Continuous Quality: Bleeding Location: Left nares Worsened by: Nothing Relieved by: Nothing Narrative Narrative: Patient presents with epistaxis that began again today. Patient was seen here earlier this morning for this. Patient had nasal packing placed in the left nares. Patient states that after he got home he laid down and felt some bleeding going down the back of his throat. Patient states he is coughing up some blood. Patient denies any trauma or injury. Patient denies any bleeding from the right nares. Patient denies any fevers or chills. [facility] Medical History (Updated 05/25/23 @ 16:[address] Nikita Hudson DO) Continuous tobacco abuse Hypertension Non-ST elevation [place] (NSTEMI) Home Medications amlodipine 10 mg tablet 10 mg PO DAILY blood pressure 02/16/23 [History Last Taken 02/16/23] lisinopril 30 mg tablet 30 mg PO DAILY blood pressure 02/16/23 [History Last Taken 02/16/23] omeprazole 20 mg capsule,delayed release 20 mg PO DAILY acid reflux 02/16/23 [History Last Taken 02/16/23] amoxicillin 875 mg-potassium clavulanate 125 mg tablet 1 tab PO BID #10 tabs 05/25/23 [Rx Last Taken Unknown] atorvastatin 40 mg tablet mg 05/25/23 [History Last Taken Unknown] clopidogrel 75 mg tablet mg 05/25/23 [History Last Taken Unknown] hydrocodone-acetaminophen 5-325mg 5mg-325mg 1 tab PO Q6H PRN PRN Pain 3 days #12 TABLETS 05/25/23 [Rx Last Taken Unknown] Allergy/AdvReac Type Severity Reaction Status Date / Time No Known Allergies Allergy Verified 05/25/23 13:13 Social History Smoking Status: Current every day smoker tobacco type: cigarettes ROS ROS ED Constitutional Constitutional ED: Denies chills or fever(s) Eyes Eyes: Denies blurry vision or change in vision ENT ENT ED: Denies ear pain or sore throat Cardiovascular Cardiovascular: Denies chest pain or palpitations Respiratory/Chest Respiratory/Chest: Denies cough or dyspnea Gastrointestinal Gastrointestinal: Denies nausea or vomiting Genitourinary Genitourinary ED: Denies dysuria or hematuria Musculoskeletal Musculoskeletal: Denies back pain or neck pain Integumentary Denies abscess or rash Neurologic Neurologic: Denies headache(s) or weakness Allergic/Immunologic Allergic/Immunologic ED: Denies mouth swelling or urticaria EXAM Physical Exam Const Vital Signs: 05/25/23 13:13 05/25/23 14:49 05/25/23 16:25 Temperature 97.4 F L Temperature Source Temporal Pulse Rate 79 Respiratory Rate 18 Blood Pressure 240/140 H 226/137 H Blood Pressure Mean 173 166 Pulse Ox 96 Oxygen Delivery Method Room Air Positive well nourished and well developed General Appearance ED: well developed and NAD HEENT Reports moist mucous membranes HEENT Narrative: There is some mild bleeding in the oropharynx. There is no bleeding from the right nares. Nasal packing was in place in the left nares. Neck is supple. Trachea is midline. There is no JVD or lymphadenopathy. Neck supple and no JVD Resp normal respiratory effort and clear to auscultation bilaterally Cardio regular rate and regular rhythm Neuro oriented x3, CN's II-XII intact bilaterally and no sensory deficits noted Sensorium / Orientation: alert Motor Exam: strength 5/5 throughout Psych mental status grossly normal MDM MDM MDM Narrative Medical decision making narrative: Noted to have a blood pressure of 240/140. Patient was given a dose of hydralazine. The nasal packing was removed. There is no bleeding noted. There is some blood noted in the posterior left nares. Baltazar solution was applied to cotton balls and were placed in the left nares. There is minimal amount of blood noted on the cotton balls. A 7.5 cm rapid Rhino was then inserted into the left nares the balloon was inflated until he was no longer able to tolerate the pressure. Patient tolerated the procedure well. Patient did cough up a blood clot after placing the posterior nasal packing. Patient is feeling better on reevaluation. Patient's repeat blood pressure was 226/137. Patient was given a repeat dose of hydralazine. Patient was instructed to continue to monitor his blood pressure. Patient was instructed to follow-up with his primary care physician for further management of his blood pressure. Patient was also instructed to follow-up with ENT as scheduled for nasal packing removal. Patient was instructed to continue his pain medication and antibiotics as prescribed. Patient understood and was agreeable with the plan. All questions were answered. Discharge Plan Triage Chief Complaint: Nosebleed ED Provider: Nikita Hudson Dx/Rx/DC Orders Clinical Impression: Acute anterior epistaxis, Hypertension Instructions: ED Epistaxis (Adult), ED Hypertension, Established Prescriptions: No Action lisinopril 30 mg tablet 30 mg PO DAILY amlodipine 10 mg tablet 10 mg PO DAILY omeprazole 20 mg capsule,delayed release(DR/EC) 20 mg PO DAILY Patient Comments: PT GETS OTC OMEPRAZOLE AND TAKES ONCE DAILY amoxicillin-pot clavulanate 875-125 mg tablet 1 tab PO BID Qty: 10 0RF hydrocodone-acetaminophen 5-325 mg tablet 1 tab PO Q6H PRN PRN (Reason: Pain) 3 Days Qty: 12 0RF atorvastatin 40 mg tablet Patient Comments: Take 1 tablet by mouth daily at bedtime. clopidogrel 75 mg tablet Patient Comments: Take 1 tablet by mouth once daily. Primary Care Provider: Clifford Silva Referrals: Adrian Ledesma MD [Med Staff - Active Staff] - Keep [facility] appointment Clifford Silva MD [Primary Care Provider] - 5-7 Days Disposition Disposition: Home, Self Care
[2023-05-25] MEDS: Mixture 30 ML Bottle 15 ML TOPICAL (14:36)
[2023-05-25 14:49] VITALS: BP 240/140
[2023-05-25] MEDS: hydrALAZINE 20 MG/ML Vial 10 MG IV (15:42)
[2023-05-25 16:25] VITALS: BP 226/137
[2023-05-25] MEDS: hydrALAZINE 20 MG/ML Vial 5 MG IV (16:56)
[2023-05-25 17:03] VITALS: BP 203/81
== END 2023-05-25 17:03 | disposition home or self-care (01) ==
PROVIDERS: Emergency Provider Emergency Medicine; PCP Family Medicine; Visit Provider Emergency Medicine
DX: R04.0 Epistaxis (principal); I10 Essential (primary) hypertension; F17.210 Nicotine dependence, cigarettes, uncomplicated; I25.2 Old myocardial infarction; I5A Non-ischemic myocardial injury (non-traumatic); Z79.899 Other long term (current) drug therapy; I25.10 Atherosclerotic heart disease of native coronary artery without angina pectoris; Z95.1 Presence of aortocoronary bypass graft; Z79.02 Long term (current) use of antithrombotics/antiplatelets; Z79.82 Long term (current) use of aspirin
CPT/HCPCS: 30901; 96374; 96376; 99282; A4216